=== PATIENT | female | born 1950 | race Caucasian/White ===

== ENCOUNTER → 2017-05-10 | Outpatient (CLI) | payer OTHER | LOC: CVU 12:57 | PROVIDERS: ATTEND Nurse Practitioner Family | DX: S91.302A Unspecified open wound, left foot, initial encounter (principal); X58.XXXA Exposure to other specified factors, initial encounter; Y93.89 Activity, other specified; Y92.89 Other specified places as the place of occurrence of the external cause; Y99.8 Other external cause status | CPT/HCPCS: 93922 ==

== ENCOUNTER → 2017-05-29 | Outpatient (CLI) | payer OTHER | END | disposition home or self-care (01) | LOC: WOUND 08:15 | PROVIDERS: ATTEND Physician Assistant | DX: L97.325 Non-pressure chronic ulcer of left ankle with muscle involvement without evidence of necrosis (principal); I10 Essential (primary) hypertension; Z85.828 Personal history of other malignant neoplasm of skin; Z72.89 Other problems related to lifestyle | CPT/HCPCS: 11043; 99205; 99215 ==

== ENCOUNTER → 2017-06-05 | Outpatient (CLI) | payer OTHER | END | disposition home or self-care (01) | LOC: WOUND 08:30 | PROVIDERS: ATTEND Physician Assistant | DX: L97.325 Non-pressure chronic ulcer of left ankle with muscle involvement without evidence of necrosis (principal); I10 Essential (primary) hypertension; Z72.89 Other problems related to lifestyle; Z85.828 Personal history of other malignant neoplasm of skin | CPT/HCPCS: 11100 ==

== ENCOUNTER → 2017-06-06 | Outpatient (CLI) | payer OTHER | END | disposition home or self-care (01) | LOC: WOUND 13:53 | PROVIDERS: ATTEND Internal Medicine Cardiovascular Disease | DX: L97.325 Non-pressure chronic ulcer of left ankle with muscle involvement without evidence of necrosis (principal); I10 Essential (primary) hypertension; Z85.828 Personal history of other malignant neoplasm of skin; Z72.89 Other problems related to lifestyle | CPT/HCPCS: 99213 ==

== ENCOUNTER → 2017-06-12 | Outpatient (CLI) | payer OTHER | END | disposition home or self-care (01) | LOC: WOUND 09:10 | PROVIDERS: ATTEND Physician Assistant | DX: I87.302 Chronic venous hypertension (idiopathic) without complications of left lower extremity (principal); L97.421 Non-pressure chronic ulcer of left heel and midfoot limited to breakdown of skin; L97.325 Non-pressure chronic ulcer of left ankle with muscle involvement without evidence of necrosis; I10 Essential (primary) hypertension; Z72.89 Other problems related to lifestyle; M67.874 Other specified disorders of tendon, left ankle and foot; Z85.828 Personal history of other malignant neoplasm of skin | CPT/HCPCS: 11042 ==

== ENCOUNTER → 2017-07-03 | Outpatient (CLI) | payer OTHER | END | disposition home or self-care (01) | LOC: WOUND 10:38 | PROVIDERS: ATTEND Family Medicine | DX: I87.312 Chronic venous hypertension (idiopathic) with ulcer of left lower extremity (principal); L97.325 Non-pressure chronic ulcer of left ankle with muscle involvement without evidence of necrosis; M67.874 Other specified disorders of tendon, left ankle and foot; Z72.89 Other problems related to lifestyle; Z85.828 Personal history of other malignant neoplasm of skin | CPT/HCPCS: 97597 ==

== ENCOUNTER → 2017-07-10 | Outpatient (CLI) | payer OTHER | END | disposition home or self-care (01) | LOC: WOUND 10:00 | PROVIDERS: ATTEND Family Medicine | DX: I87.312 Chronic venous hypertension (idiopathic) with ulcer of left lower extremity (principal); L97.325 Non-pressure chronic ulcer of left ankle with muscle involvement without evidence of necrosis; M67.874 Other specified disorders of tendon, left ankle and foot; Z72.89 Other problems related to lifestyle; Z85.828 Personal history of other malignant neoplasm of skin | CPT/HCPCS: 17250 ==

== ENCOUNTER → 2017-07-21 | Outpatient (CLI) | payer OTHER | END | disposition home or self-care (01) | LOC: WOUND 08:42 | PROVIDERS: ATTEND Family Medicine | DX: S91.302D Unspecified open wound, left foot, subsequent encounter (principal); L97.325 Non-pressure chronic ulcer of left ankle with muscle involvement without evidence of necrosis; I10 Essential (primary) hypertension; M67.874 Other specified disorders of tendon, left ankle and foot; Z85.828 Personal history of other malignant neoplasm of skin; Z72.89 Other problems related to lifestyle; X58.XXXD Exposure to other specified factors, subsequent encounter | CPT/HCPCS: 97597 ==

== ENCOUNTER → 2017-07-31 | Outpatient (CLI) | payer OTHER | END | disposition home or self-care (01) | LOC: WOUND 08:45 | PROVIDERS: ATTEND Family Medicine | DX: L97.325 Non-pressure chronic ulcer of left ankle with muscle involvement without evidence of necrosis (principal); S91.302D Unspecified open wound, left foot, subsequent encounter; M67.874 Other specified disorders of tendon, left ankle and foot; I10 Essential (primary) hypertension; Z85.828 Personal history of other malignant neoplasm of skin; Z72.89 Other problems related to lifestyle; X58.XXXD Exposure to other specified factors, subsequent encounter | CPT/HCPCS: 99214 ==

== ENCOUNTER → 2017-08-07 | Outpatient (CLI) | payer OTHER | END | disposition home or self-care (01) | LOC: WOUND 08:36 | PROVIDERS: ATTEND Family Medicine | DX: L97.325 Non-pressure chronic ulcer of left ankle with muscle involvement without evidence of necrosis (principal); S91.302D Unspecified open wound, left foot, subsequent encounter; M67.874 Other specified disorders of tendon, left ankle and foot; I10 Essential (primary) hypertension; Z85.828 Personal history of other malignant neoplasm of skin; Z72.89 Other problems related to lifestyle; X58.XXXD Exposure to other specified factors, subsequent encounter | CPT/HCPCS: 99214 ==

== ENCOUNTER → 2017-08-28 | Outpatient (CLI) | payer OTHER | END | disposition home or self-care (01) | LOC: WOUND 08:30 | PROVIDERS: ATTEND Family Medicine | DX: L97.325 Non-pressure chronic ulcer of left ankle with muscle involvement without evidence of necrosis (principal); M67.874 Other specified disorders of tendon, left ankle and foot; I10 Essential (primary) hypertension; Z85.828 Personal history of other malignant neoplasm of skin; Z72.89 Other problems related to lifestyle | CPT/HCPCS: 99214 ==